=== PATIENT | male | born 1935 | race Caucasian/White ===

== ENCOUNTER 2016-11-23 07:08 | Inpatient (IN) | payer MEDICARE ==
[~2016-11-23] VITALS: Ht 177.8 cm; Wt 65.3 kg
[2016-11-23 07:08] VITALS: BP 128/65
[~2016-11-23 07:08] MED LIST: ALBUTEROL0.09 MG/A2 INH; COLCRYS0.6 MG PO; HYDROCODONE BIT1 T11 PO; MELOXICAM15 MG PO; NORCO 325 MG-51 TAB PO; OMEPRAZOLE MAGN20 MG PO; Orphenadrine C100 MG PO; PREDNICOT10 MG PO; TESSALON PERLE200 MG PO; ULTRAM50 MG PO; ZITHROMAX Z PA250 MG PO
[2016-11-23 07:29] LABS: BASO # 0.1 10*3/uL (0.0-0.1); BASO % 0.3 % (0.0-1.0); EOS # 0.1 10*3/uL (0.0-0.4); EOS % 0.3 % (1.0-4.0); HEMATOCRIT 39.6 % (42.0-52.0); HEMOGLOBIN 13.2 g/dl (14.0-18.0); IG # 0.1 10*3/uL (0.0-0.1); LYMPH # 1.4 10*3/uL (1.3-4.4); LYMPH % 8.1 % (27.0-41.0); MEAN CELL VOLUME 90.6 fl (80.0-94.0); MEAN CORPUSCULAR HGB 30.2 pg (27.0-31.0); MEAN CORPUSCULAR HGB CONC 33.3 g/dl (33.0-37.0); MEAN PLATELET VOLUME 9.4 fl (9.6-12.3); MONO # 0.9 10*3/uL (0.1-1.0); NEUT # 15.3 10*3/uL (2.3-7.9); NEUT % 85.7 % (47.0-73.0); PLATELET COUNT AUTOMATED 244 10*3/uL (130-400); RED BLOOD COUNT 4.37 10*6/uL (4.50-5.90); RED CELL DISTRI WIDTH 14.3 % (0-14.5); WHITE BLOOD COUNT 17.8 10*3/uL (4.8-10.8)
[2016-11-23] MEDS ORDERED: ESOMEPRAZOLE MA40 M1 PO (07:33)
[2016-11-23] MEDS ORDERED: ASPIRIN81 MG PO (07:34)
[2016-11-23 07:38] LABS: INTERNATIONAL NORM RATIO 0.9 (2.0-3.5); PROTHROMBIN TIME 9.9 SECONDS (9.0-12.4)
[2016-11-23 07:48] LABS: ALBUMIN 3.1 gm/dl (3.1-4.5); ALKALINE PHOSPHATASE 128 U/L (45-117); BILIRUBIN, TOTAL 0.5 mg/dl (0.2-1.0); BUN 18 mg/dl (7-24); CARBON DIOXIDE 24 mmol/L (21-32); CHLORIDE 105 mmol/L (98-107); EST GLOM FILT AFRICAN AMERICAN > 60 ml/min; GLUCOSE 110 mg/dL (65-99); MAGNESIUM 1.4 mg/dL (1.5-2.1); POTASSIUM 4.1 mmol/L (3.5-5.1); SGOT/AST 16 IU/L (3-35); SGPT/ALT 15 U/L (12-78); SODIUM 140 mmol/L (136-145)
[2016-11-23 07:50] LABS: TROPONIN I < 0.015 ng/ml (<0.045)
[2016-11-23 08:00] VITALS: BP 121/66
[2016-11-23 11:57] VITALS: BP 119/67
[2016-11-23 16:00] VITALS: BP 101/58
[2016-11-23 20:00] VITALS: BP 120/69
[2016-11-24] VITALS: BP 100/59; BP 140/83
[2016-11-24 06:10] LABS: BASO % 0.2 % (0.0-1.0); EOS % 0.1 % (1.0-4.0); HEMATOCRIT 37.9 % (42.0-52.0); HEMOGLOBIN 12.7 g/dl (14.0-18.0); IG # 0.1 10*3/uL (0.0-0.1); LYMPH # 1.7 10*3/uL (1.3-4.4); MEAN CELL VOLUME 89.8 fl (80.0-94.0); MEAN CORPUSCULAR HGB 30.1 pg (27.0-31.0); MEAN CORPUSCULAR HGB CONC 33.5 g/dl (33.0-37.0); MEAN PLATELET VOLUME 10.2 fl (9.6-12.3); MONO # 0.2 10*3/uL (0.1-1.0); MONO % 1.3 % (3.0-9.0); NEUT # 10.8 10*3/uL (2.3-7.9); NEUT % 84.8 % (47.0-73.0); PLATELET COUNT AUTOMATED 225 10*3/uL (130-400); RED BLOOD COUNT 4.22 10*6/uL (4.50-5.90); RED CELL DISTRI WIDTH 14.2 % (0-14.5); WHITE BLOOD COUNT 12.7 10*3/uL (4.8-10.8)
[2016-11-24 06:24] LABS: HEMOGLOBIN A1c 5.8 % (4.8-5.6)
[2016-11-24 06:40] LABS: PROTHROMBIN TIME 10.6 SECONDS (9.0-12.4)
[2016-11-24 06:43] LABS: ALBUMIN 2.9 gm/dl (3.1-4.5); BILIRUBIN, TOTAL 0.6 mg/dl (0.2-1.0); BUN 25 mg/dl (7-24); CARBON DIOXIDE 20 mmol/L (21-32); CHLORIDE 103 mmol/L (98-107); CHOLESTEROL 175 mg/dL (<200); EST GLOM FILT AFRICAN AMERICAN > 60 ml/min; GLUCOSE 144 mg/dL (65-99); MAGNESIUM 1.6 mg/dL (1.5-2.1); PHOSPHOROUS 3.4 mg/dL (2.5-4.9); POTASSIUM 4.1 mmol/L (3.5-5.1); SGOT/AST 17 IU/L (3-35); SGPT/ALT 17 U/L (12-78); SODIUM 138 mmol/L (136-145); TOTAL PROTEIN 7.1 gm/dL (6.4-8.2); TRIGLYCERIDES 94 mg/dl (<150); VLDL CHOLESTEROL 19 mg/dL (6-40)
[2016-11-24 06:49] LABS: ALKALINE PHOSPHATASE 117 U/L (45-117); FREE T4 0.89 ng/dl (0.76-1.46); HDL CHOLESTEROL 68 mg/dl (40-60); LDL CHOLESTEROL 88 mg/dL (9-159)
[2016-11-24 06:59] LABS: VITAMIN D, 25-HYDROXY 15.1 ng/mL (30-100)
[2016-11-24 07:00] LABS: FOLIC ACID 11.7 ng/mL (>5.38)
[2016-11-24 08:00] VITALS: BP 148/74
[2016-11-24 12:00] VITALS: BP 130/74
[2016-11-24 16:00] VITALS: BP 169/84
[2016-11-24 20:00] VITALS: BP 150/72
[2016-11-25] VITALS: BP 154/81
[2016-11-25 06:04] LABS: BASO % 0.1 % (0.0-1.0); HEMATOCRIT 34.9 % (42.0-52.0); HEMOGLOBIN 11.8 g/dl (14.0-18.0); IG # 0.3 10*3/uL (0.0-0.1); LYMPH # 1.1 10*3/uL (1.3-4.4); LYMPH % 6.9 % (27.0-41.0); MEAN CELL VOLUME 89.3 fl (80.0-94.0); MEAN CORPUSCULAR HGB 30.2 pg (27.0-31.0); MEAN CORPUSCULAR HGB CONC 33.8 g/dl (33.0-37.0); MEAN PLATELET VOLUME 10.5 fl (9.6-12.3); MONO # 0.6 10*3/uL (0.1-1.0); MONO % 3.8 % (3.0-9.0); NEUT % 87.6 % (47.0-73.0); NUCLEATED RED BLOOD CELL 0.1 % (0.0-0.0); PLATELET COUNT AUTOMATED 245 10*3/uL (130-400); RED BLOOD COUNT 3.91 10*6/uL (4.50-5.90); RED CELL DISTRI WIDTH 14.2 % (0-14.5); WHITE BLOOD COUNT 15.9 10*3/uL (4.8-10.8)
[2016-11-25 06:33] LABS: BUN 26 mg/dl (7-24); CARBON DIOXIDE 20 mmol/L (21-32); CHLORIDE 105 mmol/L (98-107); EST GLOM FILT AFRICAN AMERICAN > 60 ml/min; GLUCOSE 126 mg/dL (65-99); MAGNESIUM 1.7 mg/dL (1.5-2.1); PHOSPHOROUS 2.8 mg/dL (2.5-4.9); POTASSIUM 3.7 mmol/L (3.5-5.1); SODIUM 138 mmol/L (136-145)
[2016-11-25 08:00] VITALS: BP 152/76
[2016-11-25 12:00] VITALS: BP 128/61
[2016-11-25 16:00] VITALS: BP 131/80
[2016-11-25 20:00] VITALS: BP 136/70
[2016-11-26] VITALS: BP 120/84
[2016-11-26 06:22] LABS: BASO % 0.1 % (0.0-1.0); HEMATOCRIT 34.7 % (42.0-52.0); HEMOGLOBIN 11.5 g/dl (14.0-18.0); IG # 0.2 10*3/uL (0.0-0.1); LYMPH # 1.3 10*3/uL (1.3-4.4); LYMPH % 10.1 % (27.0-41.0); MEAN CELL VOLUME 90.8 fl (80.0-94.0); MEAN CORPUSCULAR HGB 30.1 pg (27.0-31.0); MEAN CORPUSCULAR HGB CONC 33.1 g/dl (33.0-37.0); MEAN PLATELET VOLUME 10.6 fl (9.6-12.3); MONO # 0.8 10*3/uL (0.1-1.0); MONO % 6.1 % (3.0-9.0); NEUT # 10.6 10*3/uL (2.3-7.9); PLATELET COUNT AUTOMATED 237 10*3/uL (130-400); RED BLOOD COUNT 3.82 10*6/uL (4.50-5.90); RED CELL DISTRI WIDTH 14.3 % (0-14.5); WHITE BLOOD COUNT 12.9 10*3/uL (4.8-10.8)
[2016-11-26 06:52] LABS: BUN 31 mg/dl (7-24); CARBON DIOXIDE 24 mmol/L (21-32); CHLORIDE 104 mmol/L (98-107); EST GLOM FILT AFRICAN AMERICAN > 60 ml/min; GLUCOSE 119 mg/dL (65-99); SODIUM 138 mmol/L (136-145)
[2016-11-26 08:00] VITALS: BP 142/67
[2016-11-26] MEDS ORDERED: DOXYCYCLINE100 M3 PO (10:15)
[2016-11-26] MEDS ORDERED: METOPROLOL SUCC25 M2 PO (10:15)
[2016-11-26] MEDS ORDERED: LIPITOR10 MG PO (10:15)
[2016-11-26] MEDS ORDERED: PREDNISONE10 MG PO (10:15)
== END 2016-11-26 11:04 | disposition home or self-care (01) | DRG 178 ==
LOC: ED 07:08 → EDHOLD 08:07 → 5E 08:07 → EDHOLD 08:14 → 5E 08:18
PROVIDERS: Emergency Medicine; Hospitalist; Internal Medicine; Internal Medicine Nephrology
PROC: BD1BYZZ Fluoroscopy of Mouth/Oropharynx using Other Contrast (ICD-10-PCS; principal; 2016-11-24)
DX: J69.0 Pneumonitis due to inhalation of food and vomit (principal); E44.0 Moderate protein-calorie malnutrition; D64.9 Anemia, unspecified; K21.9 Gastro-esophageal reflux disease without esophagitis; I08.0 Rheumatic disorders of both mitral and aortic valves; Z68.20 Body mass index [BMI] 20.0-20.9, adult; R07.81 Pleurodynia; I25.118 Atherosclerotic heart disease of native coronary artery with other forms of angina pectoris; R73.9 Hyperglycemia, unspecified; M10.9 Gout, unspecified; E78.5 Hyperlipidemia, unspecified; I25.2 Old myocardial infarction; Z95.818 Presence of other cardiac implants and grafts; Z79.82 Long term (current) use of aspirin; Z87.898 Personal history of other specified conditions; Z88.0 Allergy status to penicillin; Z79.899 Other long term (current) drug therapy; M17.11 Unilateral primary osteoarthritis, right knee

== ENCOUNTER 2016-11-30 13:27 | Emergency (ER) | payer MEDICARE ==
[~2016-11-30] VITALS: Ht 177.8 cm; Wt 61.2 kg
[~2016-11-30 13:27] MED LIST changes: +ASPIRIN81 MG PO; +DOXYCYCLINE100 M3 PO; +ESOMEPRAZOLE MA40 M1 PO; +LIPITOR10 MG PO; +METOPROLOL SUCC25 M2 PO; +PREDNISONE10 MG PO
== END 2016-11-30 16:32 | disposition home or self-care (01) ==
LOC: ED 13:27
DX: M79.605 Pain in left leg (principal); Z90.49 Acquired absence of other specified parts of digestive tract; Z95.5 Presence of coronary angioplasty implant and graft; I25.10 Atherosclerotic heart disease of native coronary artery without angina pectoris; M19.90 Unspecified osteoarthritis, unspecified site; K21.9 Gastro-esophageal reflux disease without esophagitis; I25.2 Old myocardial infarction; E78.5 Hyperlipidemia, unspecified; Z88.0 Allergy status to penicillin; Z79.82 Long term (current) use of aspirin

== ENCOUNTER → 2017-01-05 | Outpatient (CLI) | payer MEDICARE ==
[2017-01-06 05:09] LABS: IMMUNOGLOBULIN IgE 002170 <1 IU/mL (0-100)
[2017-01-06 08:10] LABS: RHEUMATOID ARTHRITIS FACTOR <10.0 IU/mL (0.0-13.9)
[2017-01-08 14:07] LABS: IGG SUBCLASS 1 372 mg/dL (248-810); IGG SUBCLASS 2 233 mg/dL (130-555); IGG SUBCLASS 3 65 mg/dL (15-102); IGG SUBCLASS 4 8 mg/dL (2-96)
[2017-01-08 16:11] LABS: ANGIOTENSIN-CONVERTING ENZYME 43 U/L (14-82)
[2017-01-08 22:05] LABS: BLASTOMYCES ANTIBODY 164293 Negative (Neg:<1:1)
== END | disposition home or self-care (01) ==
LOC: LAB 09:11
PROVIDERS: Internal Medicine Critical Care Medicine
DX: J84.9 Interstitial pulmonary disease, unspecified (principal)

== ENCOUNTER 2017-04-29 08:56 | Inpatient (IN) | payer MEDICARE ==
[~2017-04-29] VITALS: Ht 179 cm; Wt 64.5 kg
[2017-04-29 09:07] VITALS: BP 138/72
[2017-04-29 09:31] LABS: BASO # 0.1 10*3/uL (0.0-0.1); BASO % 0.6 % (0.0-1.0); EOS # 0.3 10*3/uL (0.0-0.4); EOS % 3.2 % (1.0-4.0); HEMATOCRIT 38.7 % (42.0-52.0); HEMOGLOBIN 13.2 g/dl (14.0-18.0); LYMPH # 2.3 10*3/uL (1.3-4.4); LYMPH % 29.8 % (27.0-41.0); MEAN CELL VOLUME 87.6 fl (80.0-94.0); MEAN CORPUSCULAR HGB 29.9 pg (27.0-31.0); MEAN CORPUSCULAR HGB CONC 34.1 g/dl (33.0-37.0); MEAN PLATELET VOLUME 9.7 fl (9.6-12.3); MONO # 0.8 10*3/uL (0.1-1.0); MONO % 10.2 % (3.0-9.0); NEUT # 4.4 10*3/uL (2.3-7.9); NEUT % 55.7 % (47.0-73.0); PLATELET COUNT AUTOMATED 254 10*3/uL (130-400); RED BLOOD COUNT 4.42 10*6/uL (4.50-5.90); WHITE BLOOD COUNT 7.9 10*3/uL (4.8-10.8)
[2017-04-29 09:39] LABS: ACT PARTIAL THROMBO TIME 24.3 SECONDS (20.8-31.5)
[2017-04-29 09:48] LABS: ALBUMIN 2.9 gm/dl (3.1-4.5); ALKALINE PHOSPHATASE 148 U/L (45-117); BUN 8 mg/dl (7-24); CHLORIDE 105 mmol/L (98-107); CREATININE 0.87 mg/dL (0.70-1.30); POTASSIUM 3.7 mmol/L (3.5-5.1); SGOT/AST 20 IU/L (3-35); SGPT/ALT 15 U/L (12-78); SODIUM 138 mmol/L (136-145); TOTAL PROTEIN 6.6 gm/dL (6.4-8.2)
[2017-04-29 09:50] LABS: TROPONIN I < 0.015 ng/ml (<0.045)
[2017-04-29] MEDS ORDERED: LIPITOR20 MG PO (11:19)
[2017-04-29] MEDS ORDERED: METOPROLOL SUCC25 M2 PO (11:20)
[2017-04-29] MEDS ORDERED: Synthroid,Levo25 MCG PO (11:21)
--- NOTE | 2017-04-29 11:22 | NUR ---
MED REC UPDATED PER MED CLAIM HISTORY. WILL REVIEW WITH THE PATIENT ALSO.
--- NOTE | 2017-04-29 11:50 | NUR ---
A 81, admitted to , under the services of THANH Hassan DO with a diagnosis of LEFT UPPER ARM PAIN CHEST TIGHTNESS OR PRESSURE. Chief complaint is LEFT UPPER ARM PAIN. Patient arrived via STRETCHER from ER. Monitor applied. Initial assessment completed. Vital signs taken and recorded. THANH HASSAN DO notified of admission to the unit. Orders received. See assessment for past medical history, medications and allergies. Patient and/or family oriented to unit. [address] visitation policy reviewed. Clothing/patient valuable form completed. MAY DOSS
--- NOTE | 2017-04-29 11:55 | NUR ---
PT UNSURE OF MEDS, [facility], IT IS CLOSED TODAY. WILL PASS ALONG TO CALL TOMORROW.
[2017-04-29 12:00] VITALS: BP 150/75
[2017-04-29 16:00] VITALS: BP 111/58
[2017-04-29 20:00] VITALS: BP 104/53
--- NOTE | 2017-04-29 20:00 | NUR ---
[id number]. HEP LOCK INTACT TO LEFT ARM; SITE ASYMPTOMATIC. PT. VOICES NO C/O PAIN OR DISCOMFORT AT THIS TIME. CALL LIGHT WITHIN REACH.
--- NOTE | 2017-04-29 22:00 | NUR ---
RESTING IN BED; VOICES NO C/O. STATES THAT HE IS FEELING BETTER. CALL LIGHT WITHIN REACH.
[2017-04-30] VITALS: BP 110/65
--- NOTE | 2017-04-30 04:00 | NUR ---
RESTING IN BED WITH EYES CLOSED. RESPIRATIONS EASY & UNLABORED ON ROOM AIR. CALL LIGHT WITHIN REACH. BED IN LOW POSITION.
[2017-04-30 06:29] LABS: BASO # 0.1 10*3/uL (0.0-0.1); BASO % 0.8 % (0.0-1.0); EOS # 0.2 10*3/uL (0.0-0.4); EOS % 3.6 % (1.0-4.0); HEMATOCRIT 36.9 % (42.0-52.0); HEMOGLOBIN 12.4 g/dl (14.0-18.0); LYMPH # 1.9 10*3/uL (1.3-4.4); LYMPH % 29.7 % (27.0-41.0); MEAN CELL VOLUME 87.4 fl (80.0-94.0); MEAN CORPUSCULAR HGB 29.4 pg (27.0-31.0); MEAN CORPUSCULAR HGB CONC 33.6 g/dl (33.0-37.0); MEAN PLATELET VOLUME 9.9 fl (9.6-12.3); MONO # 0.8 10*3/uL (0.1-1.0); NEUT # 3.4 10*3/uL (2.3-7.9); NEUT % 52.4 % (47.0-73.0); PLATELET COUNT AUTOMATED 227 10*3/uL (130-400); RED BLOOD COUNT 4.22 10*6/uL (4.50-5.90); RED CELL DISTRI WIDTH 14.2 % (0-14.5); WHITE BLOOD COUNT 6.5 10*3/uL (4.8-10.8)
[2017-04-30 06:47] LABS: BUN 11 mg/dl (7-24); CHLORIDE 104 mmol/L (98-107); CREATININE 0.89 mg/dL (0.70-1.30); POTASSIUM 3.7 mmol/L (3.5-5.1); SODIUM 139 mmol/L (136-145)
[2017-04-30 08:00] VITALS: BP 147/84
--- NOTE | 2017-04-30 08:20 | NUR ---
PT RESTING IN BED, EATING BREAKFAST. PT ALERT & ORIENTED, STATES HE HAS NO ENERGY. LUNG SOUNDS CLEAR, ON ROOM AIR, PT STATES SOB WITH MINIMAL EXERTION, NO SOB NOTED AT REST. HRR, NO EDEMA NOTED, PT DENIES ANY CHEST PAIN. DOES STILL COMPLAIN OF LEFT ARM/MUSCULAR PAIN, RATES PAIN 5/10. DENIES NEED FOR PAIN MEDS AT THIS TIME, STATES HE WANTS TO FINISH EATING BREAKFAST. CALL LIGHT WITHIN REACH, ENCOURAGED TO CALL.
--- NOTE | 2017-04-30 09:02 | NUR ---
SPOKE WITH [facility], MED REC VERIFIED AND UPDATED PER LIST PROVIDED.
--- NOTE | 2017-04-30 09:03 | NUR ---
DR ZHONG NOTIFIED OF UPDATED MED REC.
--- NOTE | 2017-04-30 09:08 | NUR ---
Dynamometer Tuner in to talk to patient. Patient states lives at home with friend. There are no steps in the home. Physician: carter busch Pharmacy: [facility] health services: none Patient's level of ADLs: INDEPENDENT Patient has working utilities: all working DME: none Follow-up physician's appointment after d/c: will be made by hospitalist nurse director upon discharge Does patient want to access PORTAL?: no Discharge plan discussed with patient, patient lives at home with a friend, states he was getting around fine, dances one night a week, patient states lately he has been weak, discussed with him a discharge plan including a [place] term [place] [facility] for [facility]hab and he refused, also discussed with him VNA and he was receptive to this, given choice of companies, he chose [facility], planner/scheduler will send referral to [facility] for when patient is medically stable for discharge. STEFAN HERNANDEZ
--- NOTE | 2017-04-30 09:30 | NUR ---
MEDICATED WITH [facility] FOR COMPLAINTS OF LEFT ARM PAIN, PT RATES PAIN 8/10. WILL MONITOR FOR EFFECTIVENESS.
[2017-04-30 09:32] LABS: VITAMIN D, 25-HYDROXY 8.9 ng/mL (30-100)
--- NOTE | 2017-04-30 10:30 | NUR ---
PT STATED [facility] WAS ONLY MILDLY EFFECTIVE FOR LEFT ARM PAIN.
[2017-04-30 12:00] VITALS: BP 152/75
--- NOTE | 2017-04-30 12:00 | NUR ---
PRODUCTION AIDE D/C'D AT THIS TIME.
--- NOTE | 2017-04-30 13:22 | NUR ---
PHYSICAL THERAPY PAtient evaluated on 4, full evaluation to follow. Continue with PT as per plan of care with fall and acute debility precautions. Home with out patient PT versus OT for left UE pain. PAtient is low complexity via chart review, tests and evaluation: 16932. Thank you for this referral. Jacquie Nuñez,PT
[2017-04-30 16:00] VITALS: BP 108/60
--- NOTE | 2017-04-30 17:00 | NUR ---
PT STATES FLEXERIL GIVEN EARLIER WAS EFFECTIVE FOR LEFT ARM PAIN, STATES HE HAS A LOT MORE MOVEMENT IN HIS ARM.
[2017-04-30 20:00] VITALS: BP 105/53
--- NOTE | 2017-04-30 20:23 | NUR ---
PATIENT ASLEEP IN BED. RESPIRATIONS EASY. NO S/S OF DISTRESS NOTED. WILL MONITOR. CALL LIGHT LEFT IN REACH.
[2017-05-01] VITALS: BP 105/54
--- NOTE | 2017-05-01 04:18 | NUR ---
PATIENT ASLEEP IN BED. RESPIRATIONS EASY. NO S/S OF DISTRESS NOTED. ON ROOM AIR. WILL MONITOR. CALL LIGHT IN REACH.
[2017-05-01 07:37] LABS: BASO # 0.1 10*3/uL (0.0-0.1); BASO % 0.5 % (0.0-1.0); EOS # 0.3 10*3/uL (0.0-0.4); EOS % 3.4 % (1.0-4.0); HEMATOCRIT 40.9 % (42.0-52.0); HEMOGLOBIN 13.6 g/dl (14.0-18.0); LYMPH # 3.3 10*3/uL (1.3-4.4); LYMPH % 35.3 % (27.0-41.0); MEAN CELL VOLUME 89.7 fl (80.0-94.0); MEAN CORPUSCULAR HGB 29.8 pg (27.0-31.0); MEAN CORPUSCULAR HGB CONC 33.3 g/dl (33.0-37.0); MEAN PLATELET VOLUME 9.8 fl (9.6-12.3); MONO % 10.6 % (3.0-9.0); NEUT # 4.7 10*3/uL (2.3-7.9); NEUT % 49.7 % (47.0-73.0); PLATELET COUNT AUTOMATED 269 10*3/uL (130-400); RED BLOOD COUNT 4.56 10*6/uL (4.50-5.90); RED CELL DISTRI WIDTH 14.4 % (0-14.5); WHITE BLOOD COUNT 9.4 10*3/uL (4.8-10.8)
[2017-05-01 08:00] VITALS: BP 109/60
--- NOTE | 2017-05-01 08:05 | NUR ---
PT RESTING UP IN BED, NO DISTRESS NOTED. STATES HIS ARM HAS GOTTEN MORE STIFF OVER NIGHT, BUT STATES THE MEDICATION THAT WE STARTED YESTERDAY HAS REALLY HELPED. ENCOURAGED PT TO STRETCH HIS MUSCLES AND EDUCATED ON SCHEDULED MEDICATION REGIMEN. PT VERBALIZED UNDERSTANDING. CALL LIGHT WITHIN REACH.
[2017-05-01 08:11] LABS: BUN 14 mg/dl (7-24); CHLORIDE 100 mmol/L (98-107); POTASSIUM 4.2 mmol/L (3.5-5.1); SODIUM 136 mmol/L (136-145)
[2017-05-01 08:13] LABS: CREATININE 0.95 mg/dL (0.70-1.30); PHOSPHOROUS 2.9 mg/dL (2.5-4.9)
--- NOTE | 2017-05-01 09:00 | NUR ---
case management visits with patient, patient will be going home when able and will have OV see him, no other needs at this time
--- NOTE | 2017-05-01 09:46 | NUR ---
PHYSICAL THERAPY Patient presented to therapy with report feeling somewhat better. Patien tagrees to therapy session. Patient's B/P was 109/60 and O2 was 99%. Patient performed sit ot stand transfer with CGA x 1. Patient performed gait with no Assistive device and Close Supervision for 200' x 1. Patient performed seated ther ex x 20 reps each LE in all planes of movement. Patient performed sit to stands x 10 with SBA. Patient tolerated treatment well with no LOB or SOB. Patient was left in seated position with call light within reach. Patient was 1:1 with this COUNTY SUPERVISOR for 20 minutes of therapy. FLACO UND[place] COUNTY SUPERVISOR
--- NOTE | 2017-05-01 11:18 | NUR ---
OT EVALUATION COMPLETED AT BS. OT MODERATE COMPLEXITY DETERMINED BY EVAL AND CHART REVIEW. PT WITH LUE SORENESS AND WEAKNESS. HAS C/O PAIN, RATED 8/10.
[2017-05-01 12:00] VITALS: BP 121/54
[2017-05-01] MEDS ORDERED: VITAMIN D-32000 UNIT PO (12:38)
[2017-05-01] MEDS ORDERED: CYCLOBENZAPRINE10 MG PO (12:38)
[2017-05-01] MEDS ORDERED: B12,B-12,B 12500 MC1 PO (12:38)
--- NOTE | 2017-05-01 14:40 | NUR ---
Discharge instructions reviewed with patient/family. Patient receptive and verbalizes understanding. Follow-up care arranged. Written instructions given to patient/family. IV site removed. pt transported to [facility] via wheelchair, accompanied by staff. MAY FLORES
--- NOTE | 2017-05-01 14:48 | NUR ---
Patient is being discharged to home and requested visiting nurses via [facility]. Received order and faxed referral to [facility].
--- NOTE | 2017-05-02 08:11 | NUR ---
PHYSICAL THERAPY CO-SIGN I approve of the Phyical Therapy notes written above. MANJINDER OROSCO PT
== END 2017-05-01 14:48 | disposition home or self-care (01) | DRG 556 ==
LOC: ED 08:56 → EDHOLD 10:53 → 4E 10:53
PROVIDERS: Emergency Medicine; Internal Medicine Nephrology; Student in an Organized Health Care Education/Training Program; ADMIT Internal Medicine
DX: M25.512 Pain in left shoulder (principal); E44.0 Moderate protein-calorie malnutrition; D64.9 Anemia, unspecified; R07.89 Other chest pain; I25.10 Atherosclerotic heart disease of native coronary artery without angina pectoris; E55.9 Vitamin D deficiency, unspecified; E53.8 Deficiency of other specified B group vitamins; M13.861 Other specified arthritis, right knee; E78.5 Hyperlipidemia, unspecified; K21.9 Gastro-esophageal reflux disease without esophagitis; Z88.0 Allergy status to penicillin; Z79.82 Long term (current) use of aspirin; Z79.899 Other long term (current) drug therapy; I25.2 Old myocardial infarction; Z87.01 Personal history of pneumonia (recurrent); Z95.818 Presence of other cardiac implants and grafts; Z84.89 Family history of other specified conditions; Z68.20 Body mass index [BMI] 20.0-20.9, adult

== ENCOUNTER 2017-05-09 04:58 | Emergency (ER) | payer MEDICARE ==
[~2017-05-09] VITALS: Ht 177.8 cm; Wt 63.5 kg
[~2017-05-09 04:58] MED LIST changes: +B12,B-12,B 12500 MC1 PO; +CYCLOBENZAPRINE10 MG PO; +LIPITOR20 MG PO; +Synthroid,Levo25 MCG PO; +VITAMIN D-32000 UNIT PO
[2017-05-09] MEDS ORDERED: NORCO 5-325 TA1 EACH PO (05:11)
== END 2017-05-09 05:58 | disposition home or self-care (01) ==
LOC: ED 04:58
DX: M25.561 Pain in right knee (principal); I25.10 Atherosclerotic heart disease of native coronary artery without angina pectoris; K21.9 Gastro-esophageal reflux disease without esophagitis; M10.9 Gout, unspecified; E78.5 Hyperlipidemia, unspecified; I25.2 Old myocardial infarction; M17.9 Osteoarthritis of knee, unspecified; Z95.5 Presence of coronary angioplasty implant and graft; Z98.890 Other specified postprocedural states; Z79.899 Other long term (current) drug therapy; Z88.0 Allergy status to penicillin

== ENCOUNTER 2018-03-30 14:23 | Emergency (ER) | payer MEDICARE ==
[~2018-03-30] VITALS: Ht 177.8 cm; Wt 72.6 kg
[~2018-03-30 14:23] MED LIST changes: +NORCO 5-325 TA1 EACH PO
== END 2018-03-30 15:36 | disposition home or self-care (01) ==
LOC: ED 14:23
DX: M79.602 Pain in left arm (principal); M25.512 Pain in left shoulder; M25.522 Pain in left elbow; I25.10 Atherosclerotic heart disease of native coronary artery without angina pectoris; K21.9 Gastro-esophageal reflux disease without esophagitis; E78.5 Hyperlipidemia, unspecified; I25.2 Old myocardial infarction; Z88.0 Allergy status to penicillin; Z79.899 Other long term (current) drug therapy

== ENCOUNTER 2018-05-03 08:15 | Emergency (ER) | payer MEDICARE ==
[~2018-05-03] VITALS: Ht 177.8 cm; Wt 63.5 kg
[2018-05-03] MEDS ORDERED: CELEBREX100 MG PO (08:37)
[2018-05-04] MEDS ORDERED: NORCO 5-325 TA1 EACH PO (15:32)
== END 2018-05-03 08:39 | disposition home or self-care (01) ==
LOC: ED 08:15
DX: M19.90 Unspecified osteoarthritis, unspecified site (principal); Z88.0 Allergy status to penicillin; Z79.899 Other long term (current) drug therapy; Z90.49 Acquired absence of other specified parts of digestive tract

== ENCOUNTER 2018-05-04 12:50 | Emergency (ER) | payer MEDICARE ==
[~2018-05-04] VITALS: Ht 177.8 cm; Wt 61.2 kg
[~2018-05-04 12:50] MED LIST changes: +CELEBREX100 MG PO
[2018-05-04] MEDS ORDERED: NORCO 5-325 TA1 EACH PO (15:32)
== END 2018-05-04 15:43 | disposition home or self-care (01) ==
LOC: ED 12:50
DX: M17.11 Unilateral primary osteoarthritis, right knee (principal); M25.561 Pain in right knee; Z88.0 Allergy status to penicillin; Z79.899 Other long term (current) drug therapy

== ENCOUNTER → 2018-05-07 | Outpatient (CLI) | payer MEDICARE | END | disposition home or self-care (01) | LOC: RAD 10:49 | DX: M47.892 Other spondylosis, cervical region (principal); M48.02 Spinal stenosis, cervical region; M25.512 Pain in left shoulder ==

== ENCOUNTER 2019-02-01 15:35 | Emergency (ER) | payer MEDICARE ==
[~2019-02-01] VITALS: Wt 61.2 kg
[~2019-02-01 15:35] MED LIST changes: +MEDROL DOSEPAK4 MG PO
== END 2019-02-01 18:07 | disposition home or self-care (01) ==
LOC: ED 15:35
DX: S86.911A Strain of unspecified muscle(s) and tendon(s) at lower leg level, right leg, initial encounter (principal); Z88.0 Allergy status to penicillin; Z79.899 Other long term (current) drug therapy; Z90.49 Acquired absence of other specified parts of digestive tract; X58.XXXA Exposure to other specified factors, initial encounter; Y93.41 Activity, dancing; Y92.89 Other specified places as the place of occurrence of the external cause; Y99.8 Other external cause status

== ENCOUNTER 2019-05-19 11:53 | Emergency (ER) | payer MEDICARE ==
[~2019-05-19] VITALS: Ht 177.8 cm; Wt 61.2 kg
[2019-05-19] MEDS ORDERED: DOXYCYCLINE100 M3 PO (14:16)
== END 2019-05-19 14:39 | disposition home or self-care (01) ==
LOC: ED 11:53
DX: M25.531 Pain in right wrist (principal); M79.644 Pain in right finger(s); I25.10 Atherosclerotic heart disease of native coronary artery without angina pectoris; I25.2 Old myocardial infarction; Z79.899 Other long term (current) drug therapy; Z88.0 Allergy status to penicillin

== ENCOUNTER 2019-06-06 21:17 | Emergency (ER) | payer MEDICARE ==
[~2019-06-06] VITALS: Ht 177.8 cm; Wt 61.2 kg
[2019-06-06 22:07] LABS: BASO % 0.5 % (0.0-1.0); EOS # 0.1 10*3/uL (0.0-0.4); EOS % 1.2 % (1.0-4.0); HEMATOCRIT 39.6 % (42.0-52.0); HEMOGLOBIN 12.6 g/dl (14.0-18.0); LYMPH # 1.5 10*3/uL (1.3-4.4); LYMPH % 18.5 % (27.0-41.0); MEAN CELL VOLUME 93.4 fl (80.0-94.0); MEAN CORPUSCULAR HGB 29.7 pg (27.0-31.0); MEAN CORPUSCULAR HGB CONC 31.8 g/dl (33.0-37.0); MONO # 0.8 10*3/uL (0.1-1.0); NEUT # 5.8 10*3/uL (2.3-7.9); NEUT % 69.3 % (47.0-73.0); PLATELET COUNT AUTOMATED 270 10*3/uL (130-400); RED BLOOD COUNT 4.24 10*6/uL (4.50-5.90); RED CELL DISTRI WIDTH 14.7 % (0-14.5); WHITE BLOOD COUNT 8.3 10*3/uL (4.8-10.8)
[2019-06-06 22:21] LABS: ALBUMIN 2.8 gm/dl (3.1-4.5); ALKALINE PHOSPHATASE 133 U/L (45-117); BUN 15 mg/dl (7-24); CHLORIDE 105 mmol/L (98-107); CREATININE 1.07 mg/dL (0.70-1.30); LIPASE 113 U/L (73-393); POTASSIUM 3.7 mmol/L (3.5-5.1); SGOT/AST 11 IU/L (3-35); SGPT/ALT 14 U/L (12-78); SODIUM 136 mmol/L (136-145); TOTAL PROTEIN 6.7 gm/dL (6.4-8.2)
[2019-06-06 22:29] LABS: ACT PARTIAL THROMBO TIME 30.9 SECONDS (20.0-32.1); INTERNATIONAL NORM RATIO 0.9 (2.0-3.5)
[2019-06-06 23:53] LABS: BILIRUBIN NEGATIVE (NEGATIVE); BLOOD 3+ (NEGATIVE); CLARITY SL CLOUDY (CLEAR); COLOR YELLOW (YELLOW); GLUCOSE NEGATIVE (NEGATIVE); KETONE NEGATIVE (NEGATIVE); LEUKO ESTERASE NEGATIVE (NEGATIVE); NITRITE NEGATIVE (NEGATIVE); PH 5.5 (5.0-9.0); SPECIFIC GRAVITY 1.025 (1.005-1.030); UROBILINOGEN 0.2 E.U./dl (0.2-1.0)
[2019-06-07 00:11] LABS: RBC 41-50 rbc/hpf (0-2)
[2019-06-07 00:12] LABS: YEAST TRACE
== END 2019-06-07 02:25 | disposition home or self-care (01) ==
LOC: ED 21:17
PROVIDERS: Emergency Medicine Emergency Medical Services
DX: N23 Unspecified renal colic (principal); R31.9 Hematuria, unspecified; M19.90 Unspecified osteoarthritis, unspecified site; I25.10 Atherosclerotic heart disease of native coronary artery without angina pectoris; K21.9 Gastro-esophageal reflux disease without esophagitis; M10.9 Gout, unspecified; E78.5 Hyperlipidemia, unspecified; I25.2 Old myocardial infarction; Z88.0 Allergy status to penicillin; Z79.899 Other long term (current) drug therapy

== ENCOUNTER 2019-07-05 14:47 | Emergency (ER) | payer MEDICARE ==
[~2019-07-05] VITALS: Ht 177.8 cm; Wt 61.2 kg
[2019-07-05 15:42] LABS: BILIRUBIN NEGATIVE (NEGATIVE); BLOOD NEGATIVE (NEGATIVE); CLARITY SL CLOUDY (CLEAR); COLOR YELLOW (YELLOW); GLUCOSE NEGATIVE (NEGATIVE); KETONE TRACE (NEGATIVE)
[2019-07-05 15:43] LABS: LEUKO ESTERASE TRACE (NEGATIVE); NITRITE NEGATIVE (NEGATIVE); UROBILINOGEN 0.2 E.U./dl (0.2-1.0)
[2019-07-05 15:50] LABS: BACTERIA 1+; MUCOUS TRACE; RBC 0-2 rbc/hpf (0-2)
[2019-07-05 16:02] LABS: BASO % 0.5 % (0.0-1.0); EOS # 0.1 10*3/uL (0.0-0.4); EOS % 1.4 % (1.0-4.0); HEMATOCRIT 40.4 % (42.0-52.0); HEMOGLOBIN 13.1 g/dl (14.0-18.0); LYMPH # 1.6 10*3/uL (1.3-4.4); LYMPH % 20.4 % (27.0-41.0); MEAN CELL VOLUME 92.7 fl (80.0-94.0); MEAN CORPUSCULAR HGB CONC 32.4 g/dl (33.0-37.0); MEAN PLATELET VOLUME 10.2 fl (9.6-12.3); MONO # 0.8 10*3/uL (0.1-1.0); MONO % 9.9 % (3.0-9.0); NEUT # 5.2 10*3/uL (2.3-7.9); NEUT % 67.4 % (47.0-73.0); PLATELET COUNT AUTOMATED 266 10*3/uL (130-400); RED BLOOD COUNT 4.36 10*6/uL (4.50-5.90); RED CELL DISTRI WIDTH 15.5 % (0-14.5); WHITE BLOOD COUNT 7.7 10*3/uL (4.8-10.8)
[2019-07-05 16:18] LABS: ALBUMIN 3.1 gm/dl (3.1-4.5); ALKALINE PHOSPHATASE 111 U/L (45-117); BUN 14 mg/dl (7-24); CHLORIDE 109 mmol/L (98-107); CREATININE 0.87 mg/dL (0.70-1.30); LIPASE 91 U/L (73-393); POTASSIUM 3.9 mmol/L (3.5-5.1); SGOT/AST 15 IU/L (3-35); SGPT/ALT 16 U/L (12-78); SODIUM 140 mmol/L (136-145); TOTAL PROTEIN 7.1 gm/dL (6.4-8.2)
[2019-07-05] MEDS ORDERED: MACROBID100 M1 PO (18:07)
== END 2019-07-05 18:17 | disposition home or self-care (01) ==
LOC: ED 14:47
PROVIDERS: Physician Assistant
DX: R30.0 Dysuria (principal); R35.0 Frequency of micturition; I25.10 Atherosclerotic heart disease of native coronary artery without angina pectoris; I25.2 Old myocardial infarction; Z88.0 Allergy status to penicillin; Z79.899 Other long term (current) drug therapy